=== PATIENT | female | born 1935 | race African-American/Black ===

== ENCOUNTER 2016-08-18 23:38 | Inpatient (IN) | payer OTHER ==
[~2016-08-18] VITALS: Ht 157.5 cm; Wt 50.8 kg
--- NOTE | ~2016-08-18 | H ---
[facility] [place] [address] HISTORY AND PHYSICAL Name: SAMIR DÍAZ Room #: 239- ADM IN M.R.#: [id number] Admission: 08/19/16 Attend Phys: Yael Darden MD Discharge: Date of : 37 Report #: [id number] THIS REPORT FOR: //name// CC: Yael Canova DATE OF SERVICE: 08/19/2016 HISTORY OF PRESENT ILLNESS: The patient is a 80-year-old female who was transferred from [facility] to [facility] for increasing shortness of breath and lethargy. The patient's breathing was severely labored. She was given by ambulance crew one tablet of sublingual nitroglycerin and an inch of nitro paste. She was given breathing treatment in the fpc before coming to the hospital. The patient's blood pressure by EMS crew was 200 systolic. The patient was increasingly lethargic en route coming to the hospital. When on arrival to the hospital, the patient was found to have elevated CO2. For this reason, she was treated with BiPAP machine and given some morphine. PAST MEDICAL HISTORY: Significant for lung cancer of this disease. The patient had a history of chronic respiratory failure, diabetes mellitus, hearing loss, chronic pain and anemia. The patient had a history of previous viral pneumonia, chronic respiratory failure, hypertension, chronic pain syndrome, elevated liver enzymes, dehydration and anemia in addition to generalized weakness. MEDICATIONS: The patient's medications include doing DuoNeb nebulizer treatment, lisinopril 10 mg daily, metoprolol 25 mg daily, Creon 1 tablet 3 times a day, docusate sodium 100 mg one tablet twice a day, Perforomist 2 times daily, [place] 5/325 one tablet 4 times a day as needed, Humalog sliding scale. The patient is on Levemir 25 units in a.m. and 5 units at bedtime. ALLERGIES: No known drug allergies. SOCIAL HISTORY, FAMILY HISTORY AND REVIEW OF SYSTEMS: Unobtainable. PHYSICAL EXAMINATION: VITAL SIGNS: The patient's temperature on arrival to the hospital was 97.4, pulse 118, respirations 32, blood pressure 190/88. Last blood pressure was 93/45. HEAD AND NECK: Unremarkable. NECK: Supple. LUNGS: Decreased breath sounds bilaterally. CARDIOVASCULAR: S1, S2, without any murmur or gallop. ABDOMEN: Benign. Bowel sounds were positive. EXTREMITIES: +3 edema bilaterally. [facility] [address] [place] [address] HISTORY AND PHYSICAL Name: SAMIR DÍAZ Room #: 239-P [facility] IN [facility].#: [id number] Admission: 08/19/16 Attend Phys: Yael Darden MD Discharge: Date of : 37 Report #: [id number] LABORATORY DATA: Showed a pH of 7.026, pCO2 of 96, pO2 of 178. The patient's chest x-ray showed pleural effusion, left greater than right with diffuse infiltration and possibly edema. No focal area with atelectasis or infiltration. INR was 1 and PTT was 26.3. The patient's CBC showed a white count of 8.8, hemoglobin 9.6, hematocrit 32.5, platelet count of 235 and neutrophils are 72% with 1% bands. The patient's sodium is 138, potassium 5.2, chloride 106, bicarbonate 29, BUN 29, creatinine 1.4. Glucose 552, AST 30, total protein 0.3, calcium 8.3, alkaline phosphatase 79, magnesium 1.6. CPK was 45, troponin 0.04. BNP was 25,211. Repeated ABGs showed a pH of 7.189, pCO2 of 67, pO2 of 360. Glucose was 400, repeated glucose is 207. A 12-lead EKG shows sinus tachycardia with probable anteroseptal infarct that is recent. No previous EKG to compare with. ASSESSMENT AND PLAN: 1. Acute hypercapnic respiratory failure. 2. Chronic obstructive pulmonary disease exacerbation. 3. Congestive heart failure, acute on chronic with bilateral pleural effusion. 4. Diabetes mellitus. 5. Generalized debility. 6. Lung cancer. I am not sure if she had any type of treatment for that. PLAN: The patient was admitted to the hospital with the above-mentioned diagnoses. I will titrate down the oxygen to keep her oxygen about 90%. I will continue with the use of BiPAP machine, would have Pulmonary and Cardiology to consult on the patient. We will have echocardiogram done. We will continue with the bronchodilators. We will have to monitor the patient's glucose very closely. <ELECTRONICALLY SIGNED> By: Yael Darden MD 08/20/16 0536 0559 0644 Yael Darden MD /nt
--- NOTE | ~2016-08-18 | CNG ---
[facility] [address] [address] CYTO-NONGYN REPORT PROCEDURE Name: JENA MATTHEWS Room #: 458-P DIS IN M.R.#: [id number] Admission: 08/19/16 Date of : 37 Discharge: 08/25/16 Report #: [id number] Path Case #: [id number] CYTOPATHOLOGY REPORT COLLECTION DATE: 08/23/2016 RECEIVED DATE: 08/25/2016 SUBMITTING PHYS: Dr. Yael Darden OTHER PHYS: Dr. Radha Velasquez CLINICAL HISTORY: PNA, Respiratory failure. SPECIMEN(S) RECEIVED: A.Pleural fluid * * * * * * * * * * * * FINAL DIAGNOSIS: A. Pleural fluid: No malignant epithelial identified. - Reactive mesothelial cells present along with numerous macrophages. PATHOLOGIST: Michelle Jeffrey M.D. REPORT ELECTRONICALLY SIGNED BY: Michelle Jeffrey M.D. DATE/TIME: 08/26/2016 15:51 * * * * * * * * * * * * GROSS PATHOLOGY: A. Pleural fluid: The specimen is submitted unfixed, labeled "Jena Matthews ". Received by the Cytology Department is 25 mL of orange red fluid. One ThinPrep slide and a cell block were prepared. (clt 08.25.2016) VIDEO GAMES STORYWRITER(S): JACQUI De La Garza([facility]) INITIAL CPT CODE(S): A; 50771, 16175 Professional services performed by [facility] at [facility] [address] [place] [address] Technical services performed by [facility] at [address] [place] [address]., [address], [place] [address]. [facility] [address] [place] [address], [address] [place] [address] PHONE: [phone] [facility] [address] [place] [address] CYTO-NONGYN REPORT PROCEDURE Name: JENA MATTHEWS Room #: 458-P DIS IN M.R.#: [id number] Admission: 08/19/16 Date of : 37 Discharge: 08/25/16 Report #: [id number] Path Case #: [id number] DIRECTOR: Jerry Benton M.D. * * * END OF REPORT * * *
--- NOTE | ~2016-08-18 | 2DMMODE ---
[facility] [employer] [address] 2 D/M-MODE ECHOCARDIOGRAM Name: SAMIR DÍAZ Room #: 239-P [facility] IN ..#: [id number] Admission: 08/19/16 Attend Phys: Yael Darden MD Discharge: Date of : 37 Date of Service: 08/19/16 1055 Report #: [id number] THIS REPORT FOR: //name// APPROVED REPORT EXAM: Comprehensive 2D, Doppler, and color-flow Echocardiogram Patient Location: Bedside Blood Pressure: 120/57 mmHg HR: 93 bpm Other Information Study Quality: Excellent Indications Diabetes Dyspnea Hypertension/HDD Congestive Heart Failure 2D Dimensions RVDd: 25.01 mm LVEF(%): 45.60 (>50%) IVSd: 13.01 (7-11mm) LVOT Diam: 20.07 (18-24mm) LVDd: 35.18 mm PWd: 11.72 (7-11mm) Ascending Aorta: 26.68 mm LVDs: 27.40 (25-40mm) IVC: 28.00 mm Aortic Root: 30.00 mm Davila's LVEF: 45.60 % Volumes Left Atrial Volume (Systole) Single Plane 4CH: 78.19 mL Single Plane 2CH: 65.28 mL LA ESV Index: 55.00 mL/m2 Aortic Valve AoV Peak Virgilio.: 1.53 m/s AI PHT: 334.10 ms AO Peak Gr.: 9.36 mmHg LV Max P.55 mmHg LV Max: 0.94 m/s AI Vmax: 4.48 m/s AI [place]: 3.89 m/s2 Mitral Valve MV Peak Gr.: 13.39 mmHg MV PHT: 94.93 ms [facility] [place] [address] 2 D/M-MODE ECHOCARDIOGRAM Name: SAMIR DÍAZ Room #: [address] [place] [address] [place] ..#: [id number] Admission: 08/19/16 Attend Phys: Yael Darden MD Discharge: Date of : 37 Date of Service: 08/19/16 1055 Report #: [id number] Mean Gr.: 5.35 mmHg MVA (PHT): 293.31 mm2 MV E Max Virgilio.: 1.10 m/s E/A Ratio: 0.6 MV A Virgilio.: 1.71 m/s MV Decel. Time: 327.36 ms MV Max Virgilio.: 1.83 m/s MV Mean Virgilio.: 1.10 m/s MV VTI: 318.54 mm Pulmonary Valve PV Peak Virgilio.: 1.37 m/s PV Peak Gr.: 1.43 mmHg NM End Vmax: 1.37 m/s Tricuspid Valve TR Peak Virgilio.: 2.51 m/s RAP Estimate: 15.00 mmHg TR Peak Gr.: 25.28 mmHg Left Ventricle The left ventricle is normal size. There is global hypokinesis of the left ventricle. Mild concentric left ventricular hypertrophy. Left ventricular systolic function is moderately decreased. LVEF is 40%. Grade I - abnormal relaxation pattern. Right Ventricle The right ventricle is normal size. The right ventricular systolic function is normal. Atria Left atrium is dilated. The right atrium size is normal. Aortic Valve Aortic valve is trileaflet, calcified. Moderate aortic regurgitation. There is no aortic valvular stenosis. Mitral Valve Severe mitral annular calcification. Mitral valve leaflets are thickened. Mild mitral regurgitation. Mild mitral stenosis. Tricuspid Valve The tricuspid valve is normal in structure. There is mild tricuspid regurgitation. The right atrial pressure is estimated at 15 mmHg. There is mild pulmonary hypertension. Pulmonic Valve The pulmonary valve is normal in structure. Trace pulmonic regurgitation. [address] [address] 2 D/M-MODE ECHOCARDIOGRAM Name: SAMIR DÍAZ Room #: 239-P [facility] IN [facility].#: [id number] Admission: 08/19/16 Attend Phys: Yael Darden MD Discharge: Date of : 37 Date of Service: 08/19/16 1055 Report #: [id number] Great Vessels The aortic root is normal in size. The inferior vena cava is dilated with no inspiratory collapse. Pericardium Small pericardial effusion. Large left pleural effusion. Small right pleural effusion. <Conclusion> Mild concentric left ventricular hypertrophy. Left ventricular systolic function is moderately decreased. LVEF 40%. Aortic valve is trileaflet, calcified. Moderate aortic regurgitation, no stenosis. Severe mitral annular calcification. Mitral valve leaflets are thickened. Mild mitral regurgitation, mild stenosis (Peak gradient 13, mean 5mmHg). There is mild tricuspid regurgitation. The right atrial pressure is estimated at 15 mmHg. Pulmonary artery pressure of 35-40mmHg. Small pericardial effusion. Large left pleural effusion. Small right pleural effusion. <ELECTRONICALLY SIGNED> By: Viet Shah MD, FACC 08/19/16 1055 1055 1055 Viet Shah MD, FACC /INF
--- NOTE | ~2016-08-18 | EKG ---
[address] [address] ELECTROCARDIOGRAM REPORT Name: SAMIR DÍAZ Room #: 239-P ADM IN M.R.#: [id number] Admission: 08/19/16 Attend Phys: Yael Darden MD Discharge: Date of : 37 Report #: [id number] THIS REPORT FOR: //name// [facility] ED Test Date: 2016-08-19 Test Time: 00:16:20 Pat Name: SAMIR DÍZA Department: Room: 239 Gender: F Food Manager: GIOVANNA : 1935 Requested By: Kurtis Lucio Order Number: [id number] MD: Viet Shah Measurements Intervals [place] Rate: 120 P: 90 IA: 150 QRS: 24 QRSD: 80 T: 146 QT: 301 QTc: 426 Interpretive Statements Sinus tachycardia Probable anteroseptal infarct, age indeterminate No previous ECG available for comparison Electronically Signed On 08-19-2016 9:06:30 CDT by Viet Shah [email or web address] <ELECTRONICALLY SIGNED> By: Viet Shah MD, [facility] 08/19/16 0906 0016 0016 Viet Shah MD, FACC /EPI
--- NOTE | ~2016-08-18 | CNG ---
[facility] [place] [address] CYTO-NONGYN REPORT PROCEDURE Name: ARJUNJENA Room #: 458-P DIS IN M.R.#: [id number] Admission: 08/19/16 Date of : 37 Discharge: 08/25/16 Report #: [id number] Path Case #: [id number] CYTOPATHOLOGY REPORT COLLECTION DATE: 08/23/2016 RECEIVED DATE: 08/23/2016 SUBMITTING PHYS: Dr. Fela Spann OTHER PHYS: Dr. Yael Velasquez CLINICAL HISTORY: Pneumonia, respiratory failure. SPECIMEN(S) RECEIVED: A.Pleural fluid, Left * * * * * * * * * * * * FINAL DIAGNOSIS: Pleural fluid, left: - No malignant epithelial cells identified. - Normal and reactive mesothelial cells and predominantly chronic inflammatory cells present. COMMENT: Properly controlled immunohistochemical stains are performed on the cell block. (Block A1) Calretinin: stains occasional scattered mesothelial cells CD68: highlights admixed histiocytes Ascencion-EP4: non-reactive (CLW:; d/t: 08/25/16) PATHOLOGIST: Cathleen Larson M.D. REPORT ELECTRONICALLY SIGNED BY: Cathleen Larson M.D. DATE/TIME: 08/25/2016 16:10 * * * * * * * * * * * * GROSS PATHOLOGY: Pleural fluid, Left: The specimen is submitted unfixed, labeled "Jena Matthews". Received by the Cytology Department is 15 mL of cloudy red fluid out of a total volume of 700 ml. One ThinPrep slide and a cell block were prepared. (clt 08.23.2016) ADVERTISING ASSISTANT(S): JACQUI Young(ASCP)IAC INITIAL CPT CODE(S): A; 65055, 02574, 79239, 21734, 46850 Professional services performed by [facility] at [facility] [address] [place] [address] CYTO-NONGYN REPORT PROCEDURE Name: JENA MATTHEWS Room #: 458-[facility] IN M.R.#: [id number] Admission: 08/19/16 Date of : 37 Discharge: 08/25/16 Report #: [id number] Path Case #: [id number] [address], [place] [address] [facility] at [address] [place] [address], [address], [place] [address]. [facility], [address] [place] [address] PHONE: [phone] DIRECTOR: Jerry Benton M.D. * * * END OF REPORT * * *
[2016-08-18 23:39] VITALS: BP 190/88
[2016-08-18 23:57] LABS: ABG SAMPLE TYPE ARTERIAL; BE(vivo) -7.3 mmol/L (-2 to +3); HCO3 24.7 mmol/L (22.0-26.0); LACTATE 1.23 mmol/L (0.5-2.0); O2Hb 97.8 % (92.0-98.0); sO2 98.4 % (92.0-98.0); tCO2 27.7 mmol/L (24.0-30.0)
[2016-08-18 23:58] LABS: PCO2 96.6 mmHg (35.0-45.0); STICK SITE RBA; pH 7.026 (7.360-7.450)
[2016-08-18 23:59] LABS: ABG COMMENT ON NRB; FIO2 100 %
[2016-08-19] VITALS (21 sets, daily range): BP systolic 91–151; BP diastolic 44–80
[2016-08-19 00:04] LABS: HEMATOCRIT 32.5 % (37.0-47.0); HEMOGLOBIN 9.6 gm/dL (12.0-15.0); MCHC 29.4 g/dL (28.0-37.0); PLATELET COUNT 235 thou/uL (150-400); RBC 3.53 mil/uL (4.20-5.00); RDW 21.5 % (10.5-14.5); WBC 8.8 thou/uL (4.0-11.0)
[2016-08-19 00:11] LABS: MANUAL DIFF YES
[2016-08-19 00:18] LABS: APTT 26.3 Seconds (24.5-32.8); PROTIME 10.5 Seconds (9.3-11.4)
[2016-08-19 00:30] LABS: ABSOLUTE NEUTROPHILS 6.4 thou/uL (1.4-8.2); ANISOCYTOSIS 2+; MACROCYTES 1+; METAMYELOCYTES 2 %; MICROCYTES 1+; TOTAL CELL COUNT 100
[2016-08-19 00:31] LABS: POLYCHROMASIA 1+
[2016-08-19 00:33] LABS: ALBUMIN 1.8 g/dL (3.4-5.0); CALCIUM 8.3 mg/dL (8.5-10.1); CK-MB MASS 1.3 ng/mL (<0.5-3.6); CREATININE 1.4 mg/dL (0.6-1.3); MAGNESIUM 1.6 mg/dL (1.8-2.4); POTASSIUM 5.2 mmol/L (3.5-5.1); TOTAL BILIRUBIN 0.3 mg/dL (<0.1-1.0); TOTAL PROTEIN 6.7 g/dL (6.4-8.2); TROPONIN-I 0.04 ng/mL (<0.04-0.07)
[2016-08-19 01:25] LABS: ABG SAMPLE TYPE ARTERIAL; BE(vivo) -3.8 mmol/L (-2 to +3); O2Hb 98.8 % (92.0-98.0); PO2 360.4 mmHg (80.0-100.0); sO2 99.7 % (92.0-98.0); tCO2 27.1 mmol/L (24.0-30.0)
[2016-08-19 01:28] LABS: PCO2 67.2 mmHg (35.0-45.0)
[2016-08-19 01:30] LABS: STICK SITE RBA
[2016-08-19 01:31] LABS: ABG COMMENT BIPAP; Pressure Support 12 cm H20; pH 7.189 (7.360-7.450)
[2016-08-19] MEDS ORDERED: LISINOPRIL10 MG PO (02:17)
[2016-08-19] MEDS ORDERED: TOPROL XL25 MG PO (02:18)
[2016-08-19] MEDS ORDERED: DUONEB 2.5-0.5 M3 ML INH (02:19)
[2016-08-19] MEDS ORDERED: PULMICORT0.5 MG/22 INH (02:21)
[2016-08-19] MEDS ORDERED: CREON DR 24,001 EACH PO (02:21)
[2016-08-19] MEDS ORDERED: COLACE100 MG PO (02:22)
[2016-08-19] MEDS ORDERED: DOXYCYCLINE 10100 MG PO (02:23)
[2016-08-19] MEDS ORDERED: HUMALOG100 UNIT/2 SUBQ (02:24)
[2016-08-19] MEDS ORDERED: HYDROCODONE-AP1 EAC6 PO (02:24)
[2016-08-19] MEDS ORDERED: LEVEMIR SUBQ ×2 (02:25)
[2016-08-19] MEDS ORDERED: ACCUNEB SO1.25 MG/1 INH (02:28)
[2016-08-19 06:36] LABS: ABSOLUTE NEUTROPHILS 7.3 thou/uL (1.4-8.2); BASOPHILS 0.5 % (0.0-2.0); HEMATOCRIT 28.2 % (37.0-47.0); LYMPHOCYTES 4.4 % (24.0-44.0); MCH 27.7 pg (26.0-34.0); MCHC 31.8 g/dL (28.0-37.0); MONOCYTES 2.1 % (1.0-8.0); PLATELET COUNT 182 thou/uL (150-400); RBC 3.24 mil/uL (4.20-5.00); RDW 20.4 % (10.5-14.5); WBC 7.9 thou/uL (4.0-11.0)
[2016-08-19 06:47] LABS: MANUAL DIFF NO
[2016-08-19 08:02] LABS: CALCIUM 8.3 mg/dL (8.5-10.1); CREATININE 1.3 mg/dL (0.6-1.3)
[2016-08-19 08:14] LABS: POTASSIUM 4.2 mmol/L (3.5-5.1)
[2016-08-19 08:31] LABS: ABG SAMPLE TYPE ARTERIAL; BE(vivo) -1.2 mmol/L (-2 to +3); O2(CT) 13.7 mL/dL (15.0-23.0); O2Hb 97.2 % (92.0-98.0); PCO2 48.9 mmHg (35.0-45.0); PO2 118.3 mmHg (80.0-100.0); tCO2 26.5 mmol/L (24.0-30.0)
[2016-08-19 08:33] LABS: pH 7.326 (7.360-7.450)
[2016-08-19 08:34] LABS: FIO2 40 %; STICK SITE R.BRACHIAL
[2016-08-20] VITALS (19 sets, daily range): BP systolic 118–159; BP diastolic 48–139
[2016-08-20 05:09] LABS: ABG SAMPLE TYPE ARTERIAL; BE(vivo) 3.2 mmol/L (-2 to +3); HCO3 28.1 mmol/L (22.0-26.0); LACTATE 1.25 mmol/L (0.5-2.0); O2(CT) 12.4 mL/dL (15.0-23.0); PCO2 44.1 mmHg (35.0-45.0); PO2 58.3 mmHg (80.0-100.0); STICK SITE R.BRACHIAL; pH 7.422 (7.360-7.450); sO2 90.7 % (92.0-98.0); tCO2 29.4 mmol/L (24.0-30.0)
[2016-08-20 06:20] LABS: CALCIUM 8.4 mg/dL (8.5-10.1); CREATININE 1.3 mg/dL (0.6-1.3); POTASSIUM 4.4 mmol/L (3.5-5.1)
[2016-08-20 06:49] LABS: HEMATOCRIT 26.5 % (37.0-47.0); HEMOGLOBIN 8.5 gm/dL (12.0-15.0); MCH 27.7 pg (26.0-34.0); MCHC 32.2 g/dL (28.0-37.0); MCV 86.2 fL (80.0-100.0); PLATELET COUNT 192 thou/uL (150-400); RBC 3.07 mil/uL (4.20-5.00); RDW 20.1 % (10.5-14.5); WBC 6.9 thou/uL (4.0-11.0)
[2016-08-20 06:51] LABS: MANUAL DIFF YES
[2016-08-20 07:20] LABS: ABSOLUTE NEUTROPHILS 6.5 thou/uL (1.4-8.2); ANISOCYTOSIS 1+; TOTAL CELL COUNT 100
[2016-08-21 04:13] LABS: HEMATOCRIT 26.8 % (37.0-47.0); HEMOGLOBIN 8.5 gm/dL (12.0-15.0); MCH 27.8 pg (26.0-34.0); MCHC 31.9 g/dL (28.0-37.0); MCV 87.2 fL (80.0-100.0); PLATELET COUNT 212 thou/uL (150-400); RBC 3.08 mil/uL (4.20-5.00); RDW 20.7 % (10.5-14.5); WBC 8.3 thou/uL (4.0-11.0)
[2016-08-21 04:24] LABS: MANUAL DIFF YES
[2016-08-21 04:37] LABS: ALBUMIN 1.6 g/dL (3.4-5.0); CALCIUM 8.4 mg/dL (8.5-10.1); CREATININE 1.3 mg/dL (0.6-1.3); POTASSIUM 4.7 mmol/L (3.5-5.1); TOTAL BILIRUBIN 0.1 mg/dL (<0.1-1.0); TOTAL PROTEIN 5.9 g/dL (6.4-8.2)
[2016-08-21 04:57] LABS: ABG SAMPLE TYPE ARTERIAL; HCO3 27.8 mmol/L (22.0-26.0); LACTATE 1.48 mmol/L (0.5-2.0); O2(CT) 12.9 mL/dL (15.0-23.0); O2Hb 90.6 % (92.0-98.0); PCO2 43.5 mmHg (35.0-45.0); PO2 60.5 mmHg (80.0-100.0); pH 7.423 (7.360-7.450); sO2 91.6 % (92.0-98.0); tCO2 29.1 mmol/L (24.0-30.0)
[2016-08-21 04:58] LABS: FIO2 21 %; STICK SITE R.RADIAL
[2016-08-21 05:01] LABS: TOTAL CELL COUNT 100
[2016-08-21 05:02] LABS: ANISOCYTOSIS 1+; HYPOCHROMASIA SLIGHT; POIKILOCYTOSIS SLIGHT; POLYCHROMASIA OCCASIONAL
[2016-08-21 08:48] VITALS: BP 181/76
[2016-08-21 15:23] VITALS: BP 157/61
[2016-08-21 19:48] VITALS: BP 126/45
[2016-08-22 04:21] VITALS: BP 134/62
[2016-08-22 06:05] LABS: HEMATOCRIT 26.4 % (37.0-47.0); HEMOGLOBIN 8.5 gm/dL (12.0-15.0); MCH 28.1 pg (26.0-34.0); MCHC 32.2 g/dL (28.0-37.0); MCV 87.2 fL (80.0-100.0); PLATELET COUNT 213 thou/uL (150-400); RBC 3.02 mil/uL (4.20-5.00); RDW 20.9 % (10.5-14.5); WBC 7.1 thou/uL (4.0-11.0)
[2016-08-22 06:11] LABS: MANUAL DIFF YES
[2016-08-22 06:13] LABS: CALCIUM 8.2 mg/dL (8.5-10.1); CREATININE 1.3 mg/dL (0.6-1.3); POTASSIUM 3.8 mmol/L (3.5-5.1)
[2016-08-22 06:50] LABS: MYELOCYTES 1 %; TOTAL CELL COUNT 100
[2016-08-22 06:51] LABS: ANISOCYTOSIS 2+; MACROCYTES 1+; MICROCYTES 1+; POLYCHROMASIA 1+
[2016-08-22 06:52] LABS: HYPOCHROMASIA SLIGHT; LARGE PLATELETS OCCASIONAL
[2016-08-22 08:40] VITALS: BP 147/61
[2016-08-22 11:51] VITALS: BP 141/53
[2016-08-22 16:21] VITALS: BP 120/60
[2016-08-22 20:00] VITALS: BP 109/46
[2016-08-23 04:00] VITALS: BP 153/52
[2016-08-23 08:22] LABS: HEMATOCRIT 27.7 % (37.0-47.0); HEMOGLOBIN 8.8 gm/dL (12.0-15.0); MCH 27.6 pg (26.0-34.0); MCHC 31.9 g/dL (28.0-37.0); MCV 86.4 fL (80.0-100.0); PLATELET COUNT 244 thou/uL (150-400); RDW 20.9 % (10.5-14.5); WBC 7.6 thou/uL (4.0-11.0)
[2016-08-23 08:26] LABS: MANUAL DIFF YES
[2016-08-23 08:28] LABS: CALCIUM 8.5 mg/dL (8.5-10.1); CREATININE 1.4 mg/dL (0.6-1.3); POTASSIUM 3.9 mmol/L (3.5-5.1)
[2016-08-23 09:11] LABS: ABSOLUTE NEUTROPHILS 6.6 thou/uL (1.4-8.2); TOTAL CELL COUNT 100
[2016-08-23 09:14] LABS: ANISOCYTOSIS 2+
[2016-08-23 11:32] VITALS: BP 162/64
[2016-08-23 16:25] LABS: BF NUCLEATED CELLS 190; BF RBC 15934
[2016-08-23 16:26] LABS: CLARITY SLIGHTLY CLOUDY; COLOR RED; TOTAL VOLUME 60 mL
[2016-08-23 19:13] VITALS: BP 110/46
[2016-08-23 20:50] LABS: MANUAL DIFF YES
[2016-08-23 20:51] LABS: BF MACROPHAGE 5; BF NEUTROPHILS 52
[2016-08-24 00:55] VITALS: BP 150/60
[2016-08-24 03:27] VITALS: BP 120/52
[2016-08-24 05:49] LABS: HEMATOCRIT 26.9 % (37.0-47.0); HEMOGLOBIN 8.7 gm/dL (12.0-15.0); MCH 27.9 pg (26.0-34.0); MCHC 32.4 g/dL (28.0-37.0); MCV 86.1 fL (80.0-100.0); PLATELET COUNT 246 thou/uL (150-400); RBC 3.13 mil/uL (4.20-5.00); WBC 7.3 thou/uL (4.0-11.0)
[2016-08-24 05:59] LABS: MANUAL DIFF YES
[2016-08-24 06:21] LABS: CALCIUM 8.1 mg/dL (8.5-10.1); CREATININE 1.4 mg/dL (0.6-1.3); POTASSIUM 3.8 mmol/L (3.5-5.1)
[2016-08-24 06:59] LABS: ABSOLUTE NEUTROPHILS 6.3 thou/uL (1.4-8.2); ANISOCYTOSIS 1+; TOTAL CELL COUNT 100
[2016-08-24 08:15] VITALS: BP 141/42
[2016-08-24 11:10] LABS: BODY FLUID ALBUMIN 1.1 g/dL (()); BODY FLUID AMYLASE 41 U/L (()); BODY FLUID GLUCOSE 324 mg/dL (()); BODY FLUID LDH 133 IU/L (()); BODY FLUID PROTEIN 1.9 g/dL (())
[2016-08-24 12:24] VITALS: BP 138/41
[2016-08-24 15:27] VITALS: BP 110/39
[2016-08-24 20:02] VITALS: BP 101/41
[2016-08-25 04:00] VITALS: BP 115/50
[2016-08-25 06:42] LABS: ABSOLUTE NEUTROPHILS 5.1 thou/uL (1.4-8.2); BASOPHILS 0.5 % (0.0-2.0); EOSINOPHILS 0.1 % (0.0-3.0); HEMATOCRIT 25.9 % (37.0-47.0); HEMOGLOBIN 8.2 gm/dL (12.0-15.0); LYMPHOCYTES 13.1 % (24.0-44.0); MCH 27.6 pg (26.0-34.0); MCHC 31.7 g/dL (28.0-37.0); MONOCYTES 4.3 % (1.0-8.0); PLATELET COUNT 249 thou/uL (150-400); RBC 2.98 mil/uL (4.20-5.00); RDW 21.6 % (10.5-14.5); WBC 6.3 thou/uL (4.0-11.0)
[2016-08-25 06:48] LABS: MANUAL DIFF NO
[2016-08-25 06:55] LABS: CALCIUM 7.7 mg/dL (8.5-10.1); CREATININE 1.7 mg/dL (0.6-1.3); POTASSIUM 3.8 mmol/L (3.5-5.1)
[2016-08-25 08:00] VITALS: BP 130/46
[2016-08-25 09:05] LABS: % SATURATION 14 % (20-39); IRON 30 ug/dL (50-170); TIBC 216 ug/dL (250-450); UIBC 186 ug/dL
[2016-08-25] MEDS ORDERED: CEFUROXIME250 MG PO (09:19)
[2016-08-25] MEDS ORDERED: ENOXAPARIN30 MG/0.1 SUBQ (09:19)
[2016-08-25] MEDS ORDERED: LISINOPRIL20 MG PO (09:20)
[2016-08-25] MEDS ORDERED: LANTUS100 UNIT/M SUBQ (09:21)
[2016-08-25] MEDS ORDERED: PREDNISONE 20 M20 M1 PO (09:21)
[2016-08-25] MEDS ORDERED: LASIX 40 MG TAB40 M2 PO (09:22)
[2016-08-25 09:33] LABS: FOLIC ACID 4.8 ng/mL (8.6-58.9)
== END 2016-08-25 13:11 | DRG 177 ==
LOC: ER 23:38 → ICU 08-19 00:38 → 4W 08-19 00:38 → EROBS 08-19 00:38 → ICU 08-19 01:55 → 4W 08-20 17:08
PROVIDERS: Emergency Medicine; Internal Medicine; Internal Medicine Pulmonary Disease
PROC: 5A09357 Assistance with Respiratory Ventilation, Less than 24 Consecutive Hours, Continuous Positive Airway Pressure (ICD-10-PCS; principal; 2016-08-19)
PROC: BB4BZZZ Ultrasonography of Pleura (ICD-10-PCS; 2016-08-23)
PROC: 0W9B3ZX Drainage of Left Pleural Cavity, Percutaneous Approach, Diagnostic (ICD-10-PCS; 2016-08-23)
DX: J69.0 Pneumonitis due to inhalation of food and vomit (principal); J96.22 Acute and chronic respiratory failure with hypercapnia; I50.43 Acute on chronic combined systolic (congestive) and diastolic (congestive) heart failure; J44.0 Chronic obstructive pulmonary disease with (acute) lower respiratory infection; J44.1 Chronic obstructive pulmonary disease with (acute) exacerbation; J90 Pleural effusion, not elsewhere classified; I16.1 Hypertensive emergency; C34.90 Malignant neoplasm of unspecified part of unspecified bronchus or lung; I11.0 Hypertensive heart disease with heart failure; E11.65 Type 2 diabetes mellitus with hyperglycemia; H91.90 Unspecified hearing loss, unspecified ear; Z79.4 Long term (current) use of insulin; Z79.899 Other long term (current) drug therapy; Z23 Encounter for immunization
CPT/HCPCS: 10045; 10078